=== PATIENT | female | born 1960 | race Caucasian/White ===

== ENCOUNTER 2019-05-29 08:52 | Outpatient (CLI) | payer OTHER ==
--- NOTE | 2019-06-05 16:07 | MMO ---
Bilateral MAMMO Bilat Screen [facility]. CLINICAL HISTORY: Patient is 59 years old and is seen for screening. The patient has no family history of breast cancer. The patient has no personal history of cancer. VIEWS: The views performed were: bilateral craniocaudal with tomosynthesis and bilateral mediolateral oblique with tomosynthesis. FILMS COMPARED: The present examination has been compared to a prior imaging study performed at [facility] on 06/26/2010. MAMMOGRAM FINDINGS: There are scattered fibroglandular densities. Right breast: There are no suspicious masses, calcifications or areas of architectural distortion. There are benign appearing calcifications in the right breast. Left breast: 1.4 cm mass at the 12 o'clock position. In the right breast, there are no suspicious masses, calcifications or areas of architectural distortion. IMPRESSION: FINDING IN THE LEFT BREAST REQUIRES ADDITIONAL EVALUATION. ADDITIONAL PROJECTIONS (LEFT MEDIOLATERAL) ARE RECOMMENDED. ULTRASOUND IS RECOMMENDED. THE RESULTS OF THIS EXAM WERE SENT TO THE PATIENT. ACR BI-RADS Category 0 - Incomplete: Need additional imaging evaluation. [facility] will notify the patient of the need for additional imaging services. MAMMOGRAPHY NOTE: 1. A negative mammogram report should not delay a biopsy if a dominant of clinically suspicious mass is present. 2. Approximately 10% to 15% of breast cancers are not detected by mammography. 3. Adenosis and dense breasts may obscure an underlying neoplasm. Reported by: LUIS A LAYTON MD Electonically Signed: [id number]
== END 2019-05-29 08:53 | disposition home or self-care (01) ==
LOC: BICMAMMO 08:52
PROVIDERS: ATTEND Nurse Practitioner Family
DX: Z12.31 Encounter for screening mammogram for malignant neoplasm of breast (principal)
CPT/HCPCS: 77063; 77067

== ENCOUNTER 2019-06-11 09:10 | Outpatient (CLI) | payer OTHER ==
--- NOTE | 2019-06-11 12:03 | ULT ---
LIMITED ULTRASOUND LEFT BREAST: Date: 06/11/19 HISTORY: Newly developed mass in the left breast on screening mammography. FINDINGS: Limited sonographic evaluation of the left breast was performed in the region of the mammographic abn ormality. At the 12 o'clock position of the left breast, there is a circumscribed anechoic cystic les ion with posterior acoustic enhancement and well-defined back wall, compatible with a cyst. This cyst measures 1.4 cm in maximal dimension. This does correlate with the mammographic findings. No solid m ass is seen. IMPRESSION: 1. BI-RADS Category 2 - Benign findings. Routine annual mammographic screening is recommended. 2. Cyst left breast. POS: DENIS
--- NOTE | 2019-06-12 06:47 | MMO ---
Left Breast MAMMO Unilat Diag [facility]AN[facility]. CLINICAL HISTORY: Patient is 59 years old and is seen for additional evaluation requested from prior study. The patient has no family history of breast cancer. The patient has no personal history of cancer. VIEWS: The views performed were: left craniocaudal spot compression with tomosynthesis; left mediolateral oblique spot compression with tomosynthesis; and left mediolateral with tomosynthesis. FILMS COMPARED: The present examination has been compared to prior imaging studies performed at [facility] on 05/29/2019 and 06/11/2019, and at [facility] on 06/26/2010. MAMMOGRAM FINDINGS: Mass in the left breast persists on the additional images. Ultrasound shows a cyst which corresponds to the mammographic abnormality. There are no suspicious masses, suspicious calcifications, or new areas of architectural distortion. IMPRESSION: THERE IS NO MAMMOGRAPHIC EVIDENCE OF MALIGNANCY. A ROUTINE FOLLOW-UP MAMMOGRAM IN 1 YEAR IS RECOMMENDED. THE RESULTS OF THIS EXAM WERE SENT TO THE PATIENT. ACR BI-RADS Category 2 - Benign finding MAMMOGRAPHY NOTE: 1. A negative mammogram report should not delay a biopsy if a dominant of clinically suspicious mass is present. 2. Approximately 10% to 15% of breast cancers are not detected by mammography. 3. Adenosis and dense breasts may obscure an underlying neoplasm. Reported by: CHUCK APARICIO MD Electonically Signed: [id number]
== END 2019-06-11 09:11 | disposition home or self-care (01) ==
LOC: BICMAMMO 09:10
PROVIDERS: ATTEND Nurse Practitioner Family
DX: N63.20 Unspecified lump in the left breast, unspecified quadrant (principal); N60.02 Solitary cyst of left breast
CPT/HCPCS: G0279

== ENCOUNTER 2022-11-24 11:20 | Outpatient (CLI) | payer BC | END 2022-11-24 11:21 | disposition home or self-care (01) | LOC: BICMAMMO 11:20 | PROVIDERS: ATTEND Nurse Practitioner Family | DX: Z12.31 Encounter for screening mammogram for malignant neoplasm of breast (principal) | CPT/HCPCS: 77063; 77067 ==